=== PATIENT | female | born 1970 | race Caucasian/White ===

== ENCOUNTER 2016-10-29 16:00 | Emergency (ER) | payer OTHER ==
[~2016-10-29] VITALS: Ht 152.4 cm; Wt 63.9 kg
[2016-10-29] MEDS ORDERED: MOTRIN800 MG PO (18:05)
[2016-10-29] MEDS ORDERED: NORCO 7.5/321 TABLET PO (18:05)
[2016-10-29 18:22] VITALS: BP 126/101
== END 2016-10-29 18:22 | disposition home or self-care (01) ==
LOC: EME 16:00 → RME 16:00
DX: S00.83XA Contusion of other part of head, initial encounter (principal); S50.01XA Contusion of right elbow, initial encounter; S20.20XA Contusion of thorax, unspecified, initial encounter; W00.0XXA Fall on same level due to ice and snow, initial encounter; J44.9 Chronic obstructive pulmonary disease, unspecified; I10 Essential (primary) hypertension; F17.200 Nicotine dependence, unspecified, uncomplicated
CPT/HCPCS: 70486; 71100; 73080; 99281; 99283

== ENCOUNTER 2016-11-02 15:11 | Emergency (ER) | payer OTHER ==
[~2016-11-02] VITALS: Ht 152.4 cm; Wt 63.1 kg
[~2016-11-02 15:11] MED LIST: MOTRIN800 MG PO; NORCO 7.5/321 TABLET PO
[2016-11-02 15:33] VITALS: BP 113/83
[2016-11-02] MEDS ORDERED: ULTRAM50 MG PO (19:25)
[2016-11-02] MEDS ORDERED: ATARAX,VISTARIL50 MG PO (19:25)
== END 2016-11-02 20:41 | disposition home or self-care (01) ==
LOC: RME 15:11 → EME 15:11 → RME 20:41
DX: S20.211A Contusion of right front wall of thorax, initial encounter (principal); W00.0XXA Fall on same level due to ice and snow, initial encounter; J44.9 Chronic obstructive pulmonary disease, unspecified; I10 Essential (primary) hypertension; F17.200 Nicotine dependence, unspecified, uncomplicated; Z88.1 Allergy status to other antibiotic agents; Z88.8 Allergy status to other drugs, medicaments and biological substances
CPT/HCPCS: 99281; 99284